=== PATIENT | female | born 1990 | race Caucasian/White ===

== ENCOUNTER 2020-11-16 11:15 | Outpatient (CLI) | payer OTHER | END 2020-11-16 11:16 | disposition home or self-care (01) | LOC: DTY/OP 11:15 | PROVIDERS: ATTEND Surgery | DX: R73.9 Hyperglycemia, unspecified (principal); E78.5 Hyperlipidemia, unspecified | CPT/HCPCS: 97802 ==

== ENCOUNTER 2022-01-03 09:35 | Outpatient (CLI) | payer BC ==
[~2022-01-03 09:35] MED LIST: Iopamidol 300 61% 50 ML VIAL FS ONE
[2022-01-03 10:25] LABS: BHCG - Serum Negative (NEGATIVE); Pregs Control Background? CLEAR/WHITE (CLR/WHITE); Pregs Control Bar Appear? YES (CONTROL BAR)
== END 2022-01-03 09:36 | disposition home or self-care (01) ==
LOC: RAD 09:35
PROVIDERS: ATTEND Obstetrics & Gynecology
DX: Z31.41 Encounter for fertility testing (principal); Z32.00 Encounter for pregnancy test, result unknown; N83.8 Other noninflammatory disorders of ovary, fallopian tube and broad ligament
CPT/HCPCS: 36415; 58340; 74740; 84703; Q9967

== ENCOUNTER 2025-07-25 14:08 | Outpatient (CLI) | payer BC | END 2025-07-25 14:09 | disposition home or self-care (01) | LOC: BICRAD 14:08 | PROVIDERS: ATTEND Nurse Practitioner Family | DX: J32.9 Chronic sinusitis, unspecified (principal); R05.9 Cough, unspecified; R09.89 Other specified symptoms and signs involving the circulatory and respiratory systems | CPT/HCPCS: 71046 ==